=== PATIENT | female | born 1960 | race African-American/Black ===

== ENCOUNTER 2024-07-10 12:32 | Emergency (ER) | payer OTHER ==
[~2024-07-10] VITALS: Ht 175.3 cm; Wt 75.0 kg
[2024-07-10 12:53] VITALS: O2SAT 100
[2024-07-10 13:26] LABS: CARBON DIOXIDE 34 mEq/L (21-32); CHLORIDE 101 mEq/L (98-107); SODIUM 142 mEq/L (136-145)
[2024-07-10 13:27] LABS: CALCIUM 10.2 mg/dL (8.7-10.4)
[2024-07-10 13:32] LABS: CREATININE 0.8 mg/dL (0.6-1.0); GLUCOSE 129 mg/dL (70-105); UREA NITROGEN BLOOD 15 mg/dL (9-23)
[2024-07-10 13:33] LABS: ALANINE AMINOTRANSFERASE 8 IU/L (10-49)
[2024-07-10 13:34] LABS: ALBUMIN 4.6 g/dL (3.2-4.8); ASPARTATE AMINOTRANSFERASE 15 IU/L (<34); BASOPHILS % 0.9 % (0.0-2.0); BILIRUBIN DIRECT 0.2 mg/dL (<=3.0); BILIRUBIN TOTAL 0.9 mg/dL (0.1-1.0); DIFFERENTIAL COMMENT 0; EOSINOPHILS % 0.3 % (0.0-5.0); HEMATOCRIT. 44.1 % (36.0-48.0); HEMOGLOBIN. 14.3 g/dL (12.0-16.0); LYMPHOCYTES % 18.2 % (20.0-50.0); MEAN CORPUSCULAR HEMOGLOBIN 33.1 pg (28.0-32.0); MEAN CORPUSCULAR HGB CONC 32.5 g/dL (31.0-37.0); MEAN CORPUSCULAR VOLUME 101.8 fL (81.0-99.0); MEAN PLATELET VOLUME 8.2 fl (7.4-10.4); MONOCYTES % 6.3 % (2.0-8.0); NEUTROPHILS % 74.3 % (40.0-76.0); PLATELET 310 x1000/uL (130-400); PROTEIN TOTAL 7.8 g/dL (6.0-8.3); RED BLOOD CELL COUNT 4.33 mill/uL (4.2-5.4); RED CELL DISTRIBUTION WIDTH 13.6 % (11.6-14.6); WHITE BLOOD COUNT 6.1 x1000/uL (4.5-11.0)
[2024-07-10 13:41] LABS: TROPONIN I HIGH SENSITIVITY < 4 ng/L (3.0-34)
[2024-07-10 15:15] LABS: T4 FREE 1.14 ng/dL (0.89-1.76); THYROID STIMULATING HORMONE 1.97 uIU/mL (0.55-4.78)
[2024-07-10] MEDS: SODIUM CHLORIDE 0.9% 1,000 ML IV ONE (15:21)
[2024-07-10] MEDS: FAMOTIDINE 20MG/2ML VIAL IV ONE (15:26)
[2024-07-10] MEDS: KETOROLAC 15MG/ML VIAL IV ONE (15:26)
[2024-07-10] MEDS: ONDANSETRON HCL 4MG/2ML INJ IV STA (15:26)
[2024-07-10 15:27] LABS: CLARITY URINE CLEAR (CLEAR); COLOR URINE YELLOW (YELLOW); GLUCOSE URINE NEGATIVE (NEGATIVE); KETONES URINE 1+ (NEGATIVE); LEUKOCYTE ESTERASE URINE NEGATIVE (NEGATIVE); NITRITE URINE NEGATIVE (NEGATIVE); OCCULT BLOOD URINE NEGATIVE (NEGATIVE); PH URINE >=9.0 (4.5-8.0); PROTEIN URINE 1+ (NEGATIVE); SPECIFIC GRAVITY URINE 1.022 (1.005-1.030)
[2024-07-10 15:40] LABS: RBC URINE NONE SEEN /hpf (0-2); SQUAMOUS EPITHELIAL CELL URINE FEW /lpf (RARE/1+); WBC URINE 0-2 /hpf (0-2); YEAST URINE NONE SEEN
[2024-07-10 15:41] LABS: BACTERIA URINE 1+
[2024-07-10] MEDS: POTASSIUM CHLORIDE 20MEQ TABLET SR PO ONE (18:13)
[2024-07-10 19:33] VITALS: BP 156/62; PULSE 60; RESP 18; TEMP 36.78072; O2SAT 98
== END 2024-07-10 19:48 | disposition home or self-care (01) ==
LOC: ER 12:32
DX: R11.2 Nausea with vomiting, unspecified (principal); E87.6 Hypokalemia; I10 Essential (primary) hypertension; K21.9 Gastro-esophageal reflux disease without esophagitis; J44.9 Chronic obstructive pulmonary disease, unspecified; E03.9 Hypothyroidism, unspecified; Z20.822 Contact with and (suspected) exposure to COVID-19
CPT/HCPCS: 99285; 96374; 96375; 71045; 96361; 87426; 80076; 80048; 81003; 84439; 83690; 84443; 85025; 84484; 87804 ×2; 36415; 93005; J3490; J1885; J2405; J7030